=== PATIENT | male | born 1980 | race African-American/Black ===

== ENCOUNTER 2017-09-28 00:10 | Emergency (ER) | payer SELFPAY ==
[~2017-09-28] VITALS: Ht 167.6 cm; Wt 75.5 kg
[~2017-09-28 00:10] MED LIST: BACTRIM,SEPT1 TABLET PO; KEFLEX500 MG PO; MOTRIN800 MG PO; PEN-VEE K,VEET500 MG PO; ULTRAM50 MG PO; ZOFRAN4 MG PO
[2017-09-28 00:38] LABS: APPEARANCE CLEAR ((CLEAR)); BILIRUBIN NEGATIVE; BLOOD NEGATIVE; COLOR YELLOW ((YELLOW)); GLUCOSE (STRIP) NEGATIVE; KETONES NEGATIVE; LEUKOCYTES NEGATIVE; NITRITE NEGATIVE; PROTEIN (STRIP) NEGATIVE; SPECIFIC GRAVITY 1.026 (1.000-1.030)
[2017-09-28 02:03] LABS: SOURCE URINE
[2017-09-28 04:39] VITALS: BP 130/77
[2017-09-29 13:29] LABS: CHLAMYDIA TRACHOMATIS NEGATIVE; NEISSERIA GONORRHOEAE NEGATIVE
== END 2017-09-28 04:39 | disposition home or self-care (01) ==
LOC: EME 00:10
DX: N48.89 Other specified disorders of penis (principal); R20.2 Paresthesia of skin; L29.9 Pruritus, unspecified; F17.200 Nicotine dependence, unspecified, uncomplicated
CPT/HCPCS: 81003; 87491; 87591; 99281; 99283; J0696